=== PATIENT | female | born 1985 | race American Indian/Alaskan Native ===

== ENCOUNTER 2018-02-07 12:26 | Emergency (ER) | payer OTHER ==
[2018-02-07 12:41] VITALS: BP 117/78
[2018-02-07] MEDS ORDERED: TYLENOL ONE (13:34)
--- NOTE | 2018-02-07 13:34 | Emergency Department Report ---
Blank Doc - Documentation Documentation: Patient is 32-year-old female comes in short of shortness of breath and chest pain medicine on arthroscopy face H a smoker did blood work troponin aspirin EKG and will reevaluate patient.
[2018-02-07] MEDS ORDERED: ASPIRIN PO ONE (13:35)
[2018-02-07 13:57] LABS: Basophils % (Auto) 0.3 % (0.0-1.8); Eosinophils # (Auto) 0.1 K/mm3 (0.0-0.4); Eosinophils % (Auto) 1.4 % (0.0-4.3); Hematocrit 42.8 % (30.3-42.9); Hemoglobin 14.3 gm/dl (10.1-14.3); Lymphocytes # (Auto) 2.1 K/mm3 (1.2-5.4); Mean Corpuscular HGB Conc 34 % (30-34); Mean Corpuscular Hemoglobin 34 pg (28-32); Mean Corpuscular Volume 100 fl (79-97); Monocytes # (Auto) 0.7 K/mm3 (0.0-0.8); Monocytes % (Auto) 8.4 % (0.0-7.3); Platelet Count 256 K/mm3 (140-440); Red Blood Count 4.28 M/mm3 (3.65-5.03); Red Cell Distribution Width 12.1 % (13.2-15.2)
--- NOTE | 2018-02-07 14:05 | Emergency Department Report ---
ED Chest Pain HPI - General Chief Complaint: Chest Pain Stated Complaint: CHEST PAIN/SHORTNESS OF BREATH Time Seen by Provider: 02/07/18 13:29 Source: patient Mode of arrival: Ambulatory Limitations: No Limitations - History of Present Illness Initial Comments: Patient is 32-year-old female comes in short of shortness of breath and chest pain medicine on arthroscopy face H a smoker did blood work troponin aspirin EKG and will reevaluate patient. pain is intermittent without exacerbating or relieving factors. MD Complaint: chest pain Onset/Timin -: days(s) Pain Location: substernal Pain Radiation: none Severity: moderate Severity scale (0 -10): 3 Quality: sharp Consistency: intermittent Improves With: nothing Worsens With: nothing re: denies: nausea, vomting, diaphoresis, dyspnea, sense of impending doom Other Symptoms: denies: cough, fever, syncope, palpitations Treatments Prior to Arrival: none Aspirin use within the Past 7 Days: (0) No - Related Data On Oral Contraceptives: No Previous Rx's Medication Instructions Recorded Last Taken Type ALBUTEROL Inhaler [ProAir HFA 2 puff IH QID PRN #1 inhalation 02/07/18 Unknown Rx Inhaler] Fluticasone [Flonase] 1 spray NS QDAY #1 bottle 02/07/18 Unknown Rx Loratadine 10 mg PO DAILY #30 tablet 02/07/18 Unknown Rx Naproxen 500 mg PO BID PRN #30 tablet 02/07/18 Unknown Rx Allergies Allergy/AdvReac Type Severity Reaction Status Date / Time No Known Allergies Allergy Verified 02/07/18 12:37 Heart Score - HEART Score History: Slightly suspicious EKG: Normal Age: < 45 Risk factors: No known risk factors Troponin: < normal limit HEART Score: 0 ED Review of Systems ROS: Stated complaint: CHEST PAIN/SHORTNESS OF BREATH Other details as noted in HPI Constitutional: denies: chills, fever Eyes: denies: eye pain, eye discharge, vision change ENT: denies: ear pain, throat pain Respiratory: cough. denies: shortness of breath, SOB with exertion, SOB at rest , wheezing Cardiovascular: chest pain. denies: palpitations, edema, syncope, paroxysmal nocturnal dyspnea Endocrine: no symptoms reported Gastrointestinal: denies: abdominal pain, nausea, diarrhea Genitourinary: denies: urgency, dysuria, discharge Musculoskeletal: denies: back pain, joint swelling, arthralgia Skin: denies: rash, lesions Neurological: denies: headache, weakness, paresthesias Psychiatric: denies: anxiety, depression Hematological/Lymphatic: denies: easy bleeding, easy bruising ED Past Medical Hx - Past Medical History Previous Medical History?: No - Surgical History Past Surgical History?: No - Social History Smoking Status: Former Smoker Substance Use Type: None - Medications Home Medications: Home Medications Medication Instructions Recorded Confirmed Last Taken Type ALBUTEROL Inhaler [ProAir HFA 2 puff IH QID PRN #1 inhalation 02/07/18 Unknown Rx Inhaler] Fluticasone [Flonase] 1 spray NS QDAY #1 bottle 02/07/18 Unknown Rx Loratadine 10 mg PO DAILY #30 tablet 02/07/18 Unknown Rx Naproxen 500 mg PO BID PRN #30 tablet 02/07/18 Unknown Rx ED Physical Exam - General Limitations: No Limitations General appearance: alert, in no apparent distress - Head Head exam: Present: atraumatic, normocephalic - Eye Eye exam: Present: normal appearance - ENT ENT exam: Present: normal orophraynx, mucous membranes moist, TM's normal bilaterally, normal external ear exam, other (mild clear post nasal drip ) - Expanded ENT Exam Expanded Mouth exam: Present: normal external inspection. Absent: trismus Teeth exam: Present: normal inspection Throat exam: Positive: tonsillar erythema. Negative: tonsillomegaly, tonsillar exudate, R peritonsillar mass, L peritonsillar mass - Neck Neck exam: Present: normal inspection, full ROM. Absent: tenderness, lymphadenopathy, thyromegaly - Respiratory Respiratory exam: Present: normal lung sounds bilaterally. Absent: respiratory distress, wheezes, rhonchi, stridor, chest wall tenderness - Cardiovascular Cardiovascular Exam: Present: regular rate, normal rhythm, normal heart sounds. Absent: systolic murmur, diastolic murmur, rubs, gallop - GI/Abdominal GI/Abdominal exam: Present: soft, normal bowel sounds. Absent: distended, tenderness, guarding, rebound, rigid, organomegaly, mass, bruit, pulsatile mass , hernia - Rectal Rectal exam: Present: deferred - Extremities Exam Extremities exam: Present: normal inspection - Back Exam Back exam: Present: normal inspection, full ROM. Absent: tenderness, CVA tenderness (R), CVA tenderness (L), muscle spasm, paraspinal tenderness, vertebral tenderness, rash noted - Neurological Exam Neurological exam: Present: alert, oriented X3, normal gait, reflexes normal - Psychiatric Psychiatric exam: Present: normal affect, normal mood - Skin Skin exam: Present: warm, dry, intact, normal color. Absent: rash ED Course Vital Signs 02/07/18 12:37 Temperature 98.4 F Pulse Rate 79 Respiratory 16 Rate Blood Pressure 117/78 O2 Sat by Pulse 97 Oximetry SKYLAR score - Skylar Score Age > 65: (0) No Aspirin use within the Past 7 Days: (0) No 3 or more CAD Risk Factors: (0) No 2 or more Angina events in past 24 hrs: (0) No Known CAD with more than 50% Stenosis: (0) No Elevated Cardiac Markers: (0) No ST Deviation Greater than 0.5mm: (0) No SKYLAR Score: 0 ED Medical Decision Making - Lab Data Result diagrams: 02/07/18 13:42 02/07/18 13:46 Laboratory Tests 02/07/18 02/07/18 02/07/18 13:42 13:46 13:46 WBC 8.5 RBC 4.28 Hgb 14.3 Hct 42.8 MCV 100 H MCH 34 H MCHC 34 RDW 12.1 L Plt Count 256 Lymph % (Auto) 25.0 Navarro % (Auto) 8.4 H Eos % (Auto) 1.4 Baso % (Auto) 0.3 Lymph # 2.1 Navarro # 0.7 Eos # 0.1 Baso # 0.0 Seg Neutrophils % 64.9 Seg Neutrophils # 5.5 APTT 27.4 Sodium 136 L Potassium 4.5 Chloride 99.2 Carbon Dioxide 22 Anion Gap 19 BUN 10 Creatinine 0.6 L Estimated GFR > 60 BUN/Creatinine Ratio 17 Glucose 86 Calcium 9.3 Total Bilirubin 0.50 AST 15 ALT 10 Alkaline Phosphatase 82 Troponin T < 0.010 Total Protein 7.8 Albumin 4.4 Albumin/Globulin Ratio 1.3 Urine Color Urine Turbidity Urine pH Ur Specific Zanoni Urine Protein Urine Glucose (UA) Urine Ketones Urine Blood Urine Nitrite Ur Reducing Substances Urine Bilirubin Urine Ictotest Urine Urobilinogen Ur Leukocyte Esterase Urine WBC (Auto) Urine RBC (Auto) U Epithel Cells (Auto) Urine Bacteria (Auto) Urine Mucus Urine HCG, Qual 02/07/18 14:40 WBC RBC Hgb Hct MCV MCH MCHC RDW Plt Count Lymph % (Auto) Navarro % (Auto) Eos % (Auto) Baso % (Auto) Lymph # Navarro # Eos # Baso # Seg Neutrophils % Seg Neutrophils # APTT Sodium Potassium Chloride Carbon Dioxide Anion Gap BUN Creatinine Estimated GFR BUN/Creatinine Ratio Glucose Calcium Total Bilirubin AST ALT Alkaline Phosphatase Troponin T Total Protein Albumin Albumin/Globulin Ratio Urine Color Yellow Urine Turbidity Clear Urine pH 5.0 Ur Specific Zanoni 1.025 Urine Protein <15 mg/dl Urine Glucose (UA) Neg Urine Ketones 20 Urine Blood Neg Urine Nitrite Neg Ur Reducing Substances Not Reportable Urine Bilirubin Neg Urine Ictotest Not Reportable Urine Urobilinogen < 2.0 Ur Leukocyte Esterase Neg Urine WBC (Auto) < 1.0 Urine RBC (Auto) 1.0 U Epithel Cells (Auto) 2.0 Urine Bacteria (Auto) 1+ Urine Mucus Few Urine HCG, Qual Negative - Radiology Data Radiology results: image reviewed no opacties no infiltrates. - Medical Decision Making pt is an otherwise health 32 y/o aaf with hx of seasonal allergies who presents for intermittent cough with occasional sob x 2 episode, no wheezing or sob no dizziness no light headedness no cp no n/v today , pain was relieved by tylenol given in ed , ent: nose mild clear post nasal drip, pharynx clear no chest wall tenderness no wheezing heart score: 0, EKG: nsr NSTEMI, trop: ,0.01, cmp, cbc normal, ua: normal plan: NSAID prn pain , otc flonase , loratadine prn allergies, follow up with pcp in 2-3 days. Critical care attestation.: If time is entered above; I have spent that time in minutes in the direct care of this critically ill patient, excluding procedure time. ED Disposition Clinical Impression: Atypical chest pain Disposition: DC- TO HOME OR SELFCARE Is pt being admited?: No Does the pt Need Aspirin: No Condition: Good Instructions: Chest Pain (ED), Costochondritis (ED) Prescriptions: ALBUTEROL Inhaler [ProAir HFA Inhaler] 2 puff IH QID PRN #1 inhalation PRN Reason: Shortness Of Breath Fluticasone [Flonase] 1 spray NS QDAY #1 bottle Loratadine 10 mg PO DAILY #30 tablet Naproxen 500 mg PO BID PRN #30 tablet PRN Reason: Pain , Severe (7-10) Referrals: PRIMARY CARE, [Primary Care Provider] - 3-5 Days [facility] [Outside] - 3-5 Days Forms: Work/School Release Form(ED) Time of Disposition: 16:21
[2018-02-07 14:28] LABS: Alanine Aminotransferase 10 units/L (7-56); Albumin 4.4 g/dL (3.9-5); BUN/Creatinine Ratio 17; Blood Urea Nitrogen 10 mg/dL (7-17); Calcium 9.3 mg/dL (8.4-10.2); Hemolysis Index 10
[2018-02-07 15:05] LABS: Bacteria,Urine 1+ /HPF (Negative); Bilirubin,Urine NEG (Negative); Blood,Urine NEG (Negative); Color,Urine Yellow (Yellow); HCG Qualitative,Urine Negative (Negative); Mucus,Urine FEW /HPF; Protein,Urine <15 mg/dL mg/dL (Negative); Urobilinogen,Urine < 2.0 mg/dL (<2.0); WBC,Urine < 1.0 /HPF (0.0-6.0)
[2018-02-07] MEDS ORDERED: TYLENOL PO ONE (18:39)
--- NOTE | 2018-02-07 20:29 | XRay Report ---
FINAL REPORT EXAM: XR CHEST ROUTINE 2V HISTORY: chest pain TECHNIQUE: Two views of the chest were performed Comparison: None FINDINGS: Heart size is normal. There is mild platelike scarring or atelectasis in the left lung base. Lungs are otherwise clear and well expanded without focal infiltrate or consolidation. There is no pneumothorax. The imaged axial skeleton is unremarkable. IMPRESSION: Minimal left lower lobe atelectasis. Otherwise, no acute cardiopulmonary disease.
== END 2018-02-07 17:09 | disposition home or self-care (01) ==
LOC: ED 12:26
DX: R07.89 Other chest pain (principal)
CPT/HCPCS: 36415; 71046; 80053; 81001; 81025; 84484; 85025; 85730; 93005; 93010

== ENCOUNTER 2018-08-06 06:02 | Day surgery (SDC) | payer SELFPAY ==
[2018-08-06 07:09] LABS: Hematocrit 39.2 % (30.3-42.9); Hemoglobin 13.3 gm/dl (10.1-14.3)
[2018-08-06] MEDS ORDERED: DIPRIVAN 10 MG/ML IV ONE (07:22)
[2018-08-06] MEDS ORDERED: ZEMURON IV ONE (07:22)
[2018-08-06] MEDS ORDERED: XYLOCAINE MPF 2% ONE (07:22)
[2018-08-06] MEDS ORDERED: DILAUDID ONE (07:22)
[2018-08-06] MEDS ORDERED: LACTATED RINGERS 1,000 ML ONE (07:34)
--- NOTE | 2018-08-06 07:35 | Short Stay Summary ---
Short Stay Documentation Date of service: 08/06/18 Narrative H&P: Pt is a 32yo BF LMP 07/10/18 presents for surgical evaluation and treatment of a left ovarian cyst. She had been complaining of pelvic pain, and pelvic u/s showed a left ovarian cyst 8 x 6cm. CA125 - WNL. She now presents for Laparoscopic left ovarian cystectomy/oophorectomy. - History Principal diagnosis: Left ovarian cyst H&P: obtained from office Past Medical History: No medical history Past Surgical History: No surgical history Social history: no significant social history, single - Allergies and Medications Current Medications: Allergies No Known Allergies Allergy (Verified 08/05/18 08:52) Home Medications Medication Instructions Recorded Confirmed Last Taken Type No Known Home Medications [No 08/05/18 08/05/18 Unknown History Reported Home Medications] - Physical exam General appearance: no acute distress Integumentary: no rash HEENT: Atraumatic Lungs: Clear to auscultation Breasts: deferred Heart: Regular rate Gastrointestinal: normal Female Genitourinary: deferred Rectal Exam: deferred Extremities: no ischemia, No edema Neurological: Normal gait, Normal speech - Brief post op/procedure progress note Date of procedure: 08/06/18 Pre-op diagnosis: 1. Pelvic pain 2. Left ovarian cyst Post-op diagnosis: same Procedure: Laparoscopic left ovarian cystectomy Anesthesia: GETA Findings: A normal uterus with normal tubes bilaterally. A normal right ovary. A large cystic left ovary. Surgeon: MICHAELA ARCHER Estimated blood loss: minimal Pathology: list (left ovarian cystic fluid; left ovarian cyst wall) Specimen disposition: to lab Condition: stable - Hospital course Hospital course: Unremarkable. - Disposition Condition at discharge: Good Disposition: DC-01 TO HOME OR SELFCARE - Discharge Diagnoses (1) Pelvic pain Status: Resolved (2) Left ovarian cyst Status: Resolved Short Stay Discharge Plan Activity: no restrictions Diet: regular Wound: open to air, keep clean and dry Follow up with: PRIMARY CAREMD [Primary Care Provider] - 7 Days MICHAELA ARCHER MD [Staff Physician] - 14 Days Prescriptions: HYDROcodone/APAP 5-325 [[employer] 5/325] 1 each PO Q6HR PRN #20 tablet PRN Reason: Pain
[2018-08-06] MEDS ORDERED: VERSED ONE (07:48)
[2018-08-06] MEDS ORDERED: MARCAINE 0.5% INFILTRATI ONE (07:55)
[2018-08-06] MEDS ORDERED: NACL 0.9% IR ONE ×2 (07:55)
[2018-08-06] MEDS ORDERED: ANCEF/STERILE WATER 2 GM/20 ML 2 GM/20 ML SYRINGE IV NR (08:00)
[2018-08-06] MEDS ORDERED: DECADRON ONE (08:21)
[2018-08-06] MEDS ORDERED: ZOFRAN ONE (08:21)
[2018-08-06] MEDS ORDERED: BLOXIVERZ ONE (08:21)
[2018-08-06] MEDS ORDERED: ROBINUL ONE (08:21)
[2018-08-06] MEDS ORDERED: DILAUDID IV PRN (08:35)
--- NOTE | 2018-08-06 08:35 | Anesthesia Consultation ---
Anesthesia Consult and Med Hx Date of service: 08/06/18 - Airway Anesthetic Teeth Evaluation: Good ROM Head & Neck: Adequate Mental/Hyoid Distance: Adequate Mallampati Class: Class III Intubation Access Assessment: Possibly Difficult - Pulmonary Exam CTA: Yes - Cardiac Exam Cardiac Exam: RRR - Pre-Operative Health Status ASA Pre-Surgery Classification: ASA2 Proposed Anesthetic Plan: General - Pulmonary Hx Smoking: Yes (1 pack per week) Hx Asthma: No Hx Respiratory Symptoms: No SOB: No COPD: No - Cardiovascular System Hx Hypertension: No Hx Heart Attack/AMI: No Hx Cardia Arrhythmia: No - Central Nervous System Hx Seizures: No CVA: No - Gastrointestinal Hx Gastroesophageal Reflux Disease: No - Endocrine Hx Renal Disease: No Hx Liver Disease: No Hx Insulin Dependent Diabetes: No Hx Thyroid Disease: No - Other Systems Hx Alcohol Use: Yes (Occas) - Additional Comments Anesthesia Medical History Comments: No prior anesthetics. No FHx anesthetic complications.
--- NOTE | 2018-08-06 08:36 | Anesthesia Day of Surgery ---
Anesthesia Day of Surgery - Day of Surgery Patient Examined: Yes Patient H&P Reviewed: Yes Patient is NPO: Yes
[2018-08-06] MEDS ORDERED: LACTATED RINGERS 1,000 ML IV SCH (09:00)
[2018-08-06] MEDS ORDERED: TORADOL ONE (09:06)
--- NOTE | 2018-08-06 09:50 | Operative Report ---
Operative Report Operative Report: Date of procedure: 08/06/2018 Pre-operative diagnosis: 1. Pelvic pain 2. Left ovarian cyst Post-operative diagnosis: Same Procedure name(s): Laparoscopic left ovarian cystectomy Surgeon: Akira Aguilar MD Test Clerk: None Anesthesia: Gen. endotracheal intubation by Dr. Jamil EBL: Minimal Findings: A normal uterus. Normal tubes bilaterally. A normal right ovary. A large cystic left ovary. Procedure: After the patient was correctly identified, she was prepped and draped in the usual sterile fashion and placed in the dorsal lithotomy position. First the bladder was emptied using a straight catheter, and the speculumin the vaginal vault and the anterior lip of the cervix was grasped using the single-tooth tenaculum. The uterine manipulator was then placed in this tenaculum and speculum were removed. Attention was then turned to the abdomen where first a periumbilical incision was made using the skin knife, and the Optiview trocar was inserted under direct visualization. After an adequate amount of abdominal insufflation, visualization of the pelvic organs found the uterus to be normal with normal right tube and ovary, normal left fallopian tube and a large left cystic ovarian mass in the pelvic cul-de-sac. Next a suprapubic incision and a left lateral incision was made through which 5 mm trochars were placed in order to aid in the patient's pelvic organs. The left ovarian mass could not be lifted from the pelvic cul-de-sac, therefore a syringe was used to suction 150 mL's of clear fluid from the cyst which was sent to pathology, thus decompressing the cyst wall. The cyst wall was then excised, and removed using the Endopouch which was also sent to pathology. After the cyst was removed, the remnant ovary was made hemostatic using Tisseel sealant, and excellent hemostasis was assured. At this point the procedure was considered complete. All instruments removed from the abdomen. The abdomen was deflated, and the periumbilical incision was closed using 0 Vicryl suture in [id number] configuration with #bulb for Monocryl suture in interrupted fashion on the skin. The suprapubic and left lateral incisions were closed in similar fashion. Each incision was infiltrated using 0.5% Marcaine solution. The uterine manipulator was removed. The patient tolerated the procedure well and was transferred to recovery room in stable condition.
[2018-08-06 12:14] VITALS: BP 95/60
--- NOTE | 2018-08-06 14:06 | Post Anesthesia Evaluation ---
- Post Anesthesia Evaluation Patient Participated: Yes Airway Patent: Yes Stable Respiratory Function: Yes Nausea/Vomiting: No Temp > 96.8F: Yes Pain Manageable: Yes Adequeate Hydration: Yes Anesthesia Complications: No
== END 2018-08-06 11:26 | disposition home or self-care (01) ==
LOC: OR 06:02
PROVIDERS: ATTEND Obstetrics & Gynecology
DX: D27.1 Benign neoplasm of left ovary (principal); F17.200 Nicotine dependence, unspecified, uncomplicated; Z79.899 Other long term (current) drug therapy; Z72.89 Other problems related to lifestyle; Z98.890 Other specified postprocedural states
CPT/HCPCS: 36415; 58662; 81025; 85014; 85018; 88112; 88305; A4217; C9250; J1100; J1170; J1885; J2250; J2405; J2704; J2710; J7120

== ENCOUNTER 2019-10-06 22:20 | Emergency (ER) | payer SELFPAY ==
[2019-10-06 22:30] VITALS: BP 108/68
--- NOTE | 2019-10-06 23:12 | XRay Report ---
CHEST 2 VIEWS INDICATION / CLINICAL INFORMATION: MAIN: Pain with coughing and breathing; Patient c/o pain 5/10 in her chest with breathing and coughin g. Reports she has had pneumonia 3 times in the last couple years. . COMPARISON: None available. FINDINGS: SUPPORT DEVICES: None. HEART / MEDIASTINUM: No significant abnormality. LUNGS / PLEURA: No significant pulmonary or pleural abnormality. No pneumothorax. ADDITIONAL FINDINGS: No significant additional findings. IMPRESSION: 1. No acute findings. Signer Name: Derek Bettencourt MD Signed: 10/06/2019 11:08 PM Workstation Name: [id number]
--- NOTE | 2019-10-07 01:00 | Emergency Department Report ---
Minor Respiratory - HPI Chief Complaint: Chest Pain Stated Complaint: PNEUMONIA Time Seen by Provider: 10/07/19 00:56 Duration: 3 Days Pain Location: Chest Severity: mild Minor Respiratory: Yes Rhinorrhea, Yes Able to Tolerate Fluids, Yes Cough, Yes Chest Pain, Yes Shortness of Breath, No Sore Throat, No Ear Pain, No Sick Contacts, No Hemoptysis, No Fever Other History: Gwen is a healthy 33-year-old female who presents cough call chest pain shortness of breath. Concern for pneumonia. She does not smoke tobacco. She does smoke marijuana. ED Review of Systems ROS: Stated complaint: PNEUMONIA Other details as noted in HPI Constitutional: denies: fever, malaise ENT: denies: throat pain Respiratory: cough, shortness of breath Cardiovascular: chest pain Neurological: denies: headache ED Past Medical Hx - Past Medical History Previous Medical History?: Yes Hx Hypertension: No Hx Heart Attack/AMI: No Hx Liver Disease: No Hx Renal Disease: No Hx Headaches / Migraines: Yes (Past hx migraines) Hx Seizures: No Hx Asthma: No Hx COPD: No - Surgical History Past Surgical History?: Yes Additional Surgical History: Ovarian Cyst Removal 2017 - Social History Smoking Status: Current Every Day Smoker - Medications Home Medications: Home Medications Medication Instructions Recorded Confirmed Last Taken Type HYDROcodone/APAP 5-325 [[place] 1 each PO Q6HR PRN #20 tablet 08/06/18 Unknown Rx 5/325] Minor Respiratory Exam - Exam General: Vital signs noted. No distress. Alert and acting appropriately. HEENT: Yes Moist Mucous Membranes, No Pharyngeal Erythema, No Pharyngeal Exudates, No Rhinorrhea, No Conjuctival Injection Neck: Yes Supple Lungs: Yes Good Air Exchange, No Wheezes, No Ronchi, No Stridor, No Cough, No Labored Respirations, No Retractions, No Use of Accessory Muscles, No Other Abnormal Lung Sounds Heart: Yes Regular, No Murmur Abdomen: Yes Normal Bowel Sounds, No Tenderness, No Peritoneal Signs Skin: No Rash, No Edema Neurologic: Alert and oriented, no deficits. Musculoskeletal: Unremarkable. ED Course Vital Signs 10/06/19 22:28 Temperature 98.6 F Pulse Rate 75 Respiratory 18 Rate Blood Pressure 108/68 O2 Sat by Pulse 99 Oximetry ED Medical Decision Making - Radiology Data Radiology results: report reviewed Chest radiographs two-view no acute process according to radiologist's impression - Medical Decision Making Diagnosis acute bronchitis recommend supportive [id number] treatment. Critical care attestation.: If time is entered above; I have spent that time in minutes in the direct care of this critically ill patient, excluding procedure time. ED Disposition Clinical Impression: Acute bronchitis Disposition: DC-01 TO HOME OR SELFCARE Is pt being admited?: No Does the pt Need Aspirin: No Condition: Stable Instructions: Acute Bronchitis (ED) Referrals: PRIMARY CARE,MD [Primary Care Provider] - 3-5 Days Forms: Work/School Release Form(ED)
== END 2019-10-07 01:05 | disposition home or self-care (01) ==
LOC: ED 22:20
DX: J20.9 Acute bronchitis, unspecified (principal); G43.909 Migraine, unspecified, not intractable, without status migrainosus; F17.200 Nicotine dependence, unspecified, uncomplicated; Z79.899 Other long term (current) drug therapy
CPT/HCPCS: 71046

== ENCOUNTER 2021-01-24 12:45 | Emergency (ER) | payer SELFPAY ==
[2021-01-24 13:36] VITALS: BP 115/77
--- NOTE | 2021-01-24 14:11 | XRay Report ---
RIGHT HAND 3 VIEWS INDICATION: PAIN/ SWELLING. COMPARISON: None. IMPRESSION: No acute osseous or soft tissue abnormality. No significant DJD. Signer Name: Akira Mendoza Jr, MD Signed: 01/24/2021 2:06 PM Workstation Name: [id number]
[2021-01-24] MEDS ORDERED: IBUPROFEN 600 MG TAB PO ONE (14:32)
--- NOTE | 2021-01-24 14:33 | Emergency Department Report ---
ED Upper Extremity Inj HPI - General Chief Complaint: Extremity Injury, Upper Stated Complaint: HAND INJURY Time Seen by Provider: 01/24/21 14:28 Source: patient Mode of arrival: Ambulatory Limitations: No Limitations - History of Present Illness Initial Comments: 35-year-old -Tong[place] female presents to the emergency room for right hand injury and pain with swelling. Patient states she was horsing around at the house and hit her hand on the granite counter. Patient states that she thought she was able to go home but the pain was so severe that she returned home and took 2 Aleve. Patient came to emergency for evaluation. Complaint: Injury to:: right, hand -: This morning Handedness: right Place: home Severity scale (0 -10): 10 Improves With: none Context: direct blow Associated Symptoms: denies other symptoms - Related Data Previous Rx's Medication Instructions Recorded Last Taken Type HYDROcodone/APAP 5-325 [[place] 1 each PO Q6HR PRN #20 tablet 08/06/18 Unknown Rx 5/325] Allergies Allergy/AdvReac Type Severity Reaction Status Date / Time No Known Allergies Allergy Verified 01/24/21 13:32 ED Review of Systems ROS: Stated complaint: HAND INJURY Other details as noted in HPI Comment: All other systems reviewed and negative ED Past Medical Hx - Past Medical History Hx Hypertension: No Hx Heart Attack/AMI: No Hx Liver Disease: No Hx Renal Disease: No Hx Headaches / Migraines: Yes (Past hx migraines) Hx Seizures: No Hx Asthma: No Hx COPD: No - Surgical History Additional Surgical History: Ovarian Cyst Removal 2017 - Social History Smoking Status: Current Every Day Smoker - Medications Home Medications: Home Medications Medication Instructions Recorded Confirmed Last Taken Type HYDROcodone/APAP 5-325 [[place] 1 each PO Q6HR PRN #20 tablet 08/06/18 Unknown Rx 5/325] ED Physical Exam - General Limitations: No Limitations General appearance: alert, in no apparent distress - Head Head exam: Present: atraumatic, normocephalic - Eye Eye exam: Present: normal appearance - Neck Neck exam: Present: normal inspection, full ROM - Expanded Upper Extremity Exam Right General: Present: normal inspection Shoulder Exam: Present: normal inspection Upper Arm exam: Present: normal inspection Elbow exam: Present: normal inspection Forearm Wrist exam: Present: normal inspection, full ROM. Absent: tenderness, swelling Hand Wrist exam: Present: full ROM, tenderness, swelling. Absent: ecchymosis, deformity - Neurological Exam Neurological exam: Present: alert, oriented X3 ED Course Vital Signs 01/24/21 13:35 Temperature 98.4 F Pulse Rate 66 Respiratory 18 Rate Blood Pressure 115/77 O2 Sat by Pulse 99 Oximetry ED Medical Decision Making - Radiology Data Radiology results: report reviewed [facility] [address] [place] [address] XRay Report Signed Patient: SEBASTIEN BURLESON MR#: [id number] : 1985 Acct:[id number] Age/Sex: 35 / F ADM Date: 01/24/21 Loc: ED Attending Dr: Ordering Physician: ED MD BLADIMIR Date of Service: 01/24/21 Procedure(s): XR hand 3+V RT Accession Number(s): [id number] cc: ED MD BLADIMIR Fluoro Time In Minutes: RIGHT HAND 3 VIEWS INDICATION: PAIN/ SWELLING. COMPARISON: None. IMPRESSION: No acute osseous or soft tissue abnormality. No significant DJD. Signer Name: Akira Liang Jr, MD Signed: 01/24/2021 2:06 PM Workstation Name: [id number] Transcribed By: TTR Dictated By: AKIRA LIANG JR, MD Electronically Authenticated By: AKIRA LIANG JR, MD Signed Date/Time: 01/24/21 140 DD/ 1405 TD/TT: - Medical Decision Making 35-year-old -Tong[place] female presents to the emergency room for right hand injury and pain with swelling. Patient states she was horsing around at the house and hit her hand on the granite counter. Patient states that she thought she was able to go home but the pain was so severe that she returned home and took 2 Aleve. Patient came to emergency for evaluation. Critical care attestation.: If time is entered above; I have spent that time in minutes in the direct care of this critically ill patient, excluding procedure time. ED Disposition Clinical Impression: Sprain of hand, thumb, right Disposition: DC-01 TO HOME OR SELFCARE Is pt being admited?: No Does the pt Need Aspirin: No Condition: Stable Instructions: Finger Sprain (ED), Thumb Sprain Additional Instructions: X-rays negative for any acute fractures. You appear to have a thumb sprain. We will place you in a thumb spica wrist brace Tylenol ibuprofen or Aleve for your pain management. Ice for the first 24 hours and heat. Referrals: PRIMARY CARE, [Primary Care Provider] - 3-5 Days [facility] [Provider Group] - 3-5 Days
== END 2021-01-24 15:27 | disposition home or self-care (01) ==
LOC: ED 12:45
DX: S63.601A Unspecified sprain of right thumb, initial encounter (principal); G43.909 Migraine, unspecified, not intractable, without status migrainosus; F17.200 Nicotine dependence, unspecified, uncomplicated; Z79.899 Other long term (current) drug therapy; X58.XXXA Exposure to other specified factors, initial encounter; Y93.89 Activity, other specified; Y92.009 Unspecified place in unspecified non-institutional (private) residence as the place of occurrence of the external cause; Y99.8 Other external cause status
CPT/HCPCS: 99283